=== PATIENT | male | born 1970 | race Native Hawaiian/Other Pacific Islander ===

== ENCOUNTER 2019-12-06 08:19 | Observation (INO) | payer OTHER ==
--- NOTE | 2019-12-06 09:30 | Emergency Department Report ---
ED General Adult HPI - General Chief complaint: Medical Clearance Stated complaint: DIALYSIS Time Seen by Provider: 12/06/19 09:13 Source: patient, police Mode of arrival: Ambulatory Limitations: No Limitations - History of Present Illness Initial comments: Patient is 49 years old male with history of end-stage renal disease on hemodialysis. Patient brought to the emergency room from long term for dialysis. Officer who is accompanied the patient stated that the nurse that do dialysis for him diagnosed with COVID-19 and they do not have somebody to do dialysis for him. Patient is currently denying any shortness of breath, chest pain, cough, fever or chills. No headache, weakness numbness or tingling sensation. Last dialysis was Tuesday. - Related Data Allergies Allergy/AdvReac Type Severity Reaction Status Date / Time No Known Allergies Allergy Unverified 12/06/19 08:26 ED Review of Systems ROS: Stated complaint: DIALYSIS Other details as noted in HPI Comment: All other systems reviewed and negative Constitutional: denies: chills, fever Respiratory: denies: cough, shortness of breath, SOB with exertion, wheezing Cardiovascular: denies: chest pain, palpitations Gastrointestinal: denies: abdominal pain, nausea, vomiting, diarrhea, constipation, hematemesis, melena, hematochezia Musculoskeletal: denies: back pain Neurological: denies: headache, weakness, numbness, paresthesias, confusion, abnormal gait ED Past Medical Hx - Past Medical History Hx Diabetes: Yes Hx Psychiatric Treatment: Yes (PARANOID SCHIOPHRENIC) Additional medical history: ESRD - Surgical History Past Surgical History?: No - Social History Smoking Status: Current Every Day Smoker Substance Use Type: None ED Physical Exam - General Limitations: No Limitations General appearance: alert, in no apparent distress - Head Head exam: Present: atraumatic, normocephalic, normal inspection - Eye Eye exam: Present: normal appearance, PERRL - ENT ENT exam: Present: normal exam, normal orophraynx, mucous membranes moist - Neck Neck exam: Present: normal inspection, full ROM. Absent: tenderness, meningismus, lymphadenopathy, thyromegaly - Respiratory Respiratory exam: Present: normal lung sounds bilaterally - Cardiovascular Cardiovascular Exam: Present: regular rate, normal rhythm, normal heart sounds - GI/Abdominal GI/Abdominal exam: Present: soft, normal bowel sounds. Absent: distended, tenderness, guarding, rebound, rigid, organomegaly, mass, bruit, pulsatile mass, hernia - Extremities Exam Extremities exam: Present: normal inspection, full ROM, normal capillary refill. Absent: calf tenderness - Back Exam Back exam: Present: normal inspection, full ROM. Absent: CVA tenderness (R), CVA tenderness (L) - Neurological Exam Neurological exam: Present: alert, oriented X3, CN II-XII intact, motor sensory deficit - Psychiatric Psychiatric exam: Present: normal mood - Skin Skin exam: Present: warm, intact, normal color ED Course Vital Signs 12/06/19 12/06/19 08:28 10:55 Temperature 98.0 F Pulse Rate 72 Respiratory 20 Rate Blood Pressure 190/105 Blood Pressure 187/107 [Left] O2 Sat by Pulse 100 Oximetry ED Medical Decision Making - Lab Data Result diagrams: 12/06/19 09:12 12/06/19 09:12 - Medical Decision Making Patient is 49 years old male with history of end-stage renal disease on hemodialysis. Patient brought to the emergency room from long term for dialysis. Officer who is accompanied the patient stated that the nurse that do dialysis for him diagnosed with COVID-19 and they do not have somebody to do dialysis for him. Patient is currently denying any shortness of breath, chest pain, cough, fever or chills. No headache, weakness numbness or tingling sensation. Last dialysis was Tuesday. Patient labs reviewed and showed hyperkalemia and elevated blood pressure. I discussed the patient with Dr. Enriquez, health program director personal care worker, he agreed to dialyze the patient today. I discussed the patient with Dr. Barraza, he agreed to admit the patient to medical service for further management. Critical Care Time: Yes Critical care time in (mins) excluding proc time.: 30 Critical care attestation.: If time is entered above; I have spent that time in minutes in the direct care of this critically ill patient, excluding procedure time. ED Disposition Clinical Impression: End-stage renal disease needing dialysis, Volume overload, Hyperkalemia Disposition: OP ADMIT IP TO THIS HOSP Is pt being admited?: Yes Condition: Stable
[2019-12-06 09:32] LABS: Hematocrit 34.4 % (35.5-45.6); Hemoglobin 11.1 gm/dl (11.8-15.2); Mean Corpuscular HGB Conc 32 % (32-34); Mean Corpuscular Volume 94 fl (84-94); Platelet Count 135 K/mm3 (140-440); Red Blood Count 3.66 M/mm3 (3.65-5.03); Red Cell Distribution Width 14.6 % (13.2-15.2)
[2019-12-06 09:49] LABS: Calcium 9.6 mg/dL (8.4-10.2)
--- NOTE | 2019-12-06 11:20 | Consultation ---
History of Present Illness - Reason for Consult Consult date: 12/06/19 end stage renal disease, hyperkalemia - History of Present Illness The patient is a 49 YO male who is a inmate from local [facility] with history significant for Hypertension, Schizophrenia and ESRD on hemodialysis (MWF) was brought to [facility] ED for dialysis. Per officer who accompanied the patient stated that the nurse that do hemodialysis for him diagnosed with COVID-19 and they do not have anyone else to do dialysis for him. Patient is currently denying any shortness of breath, chest pain, cough, fever, chill, headache, weakness numbness or tingling sensation. Patient was last dialyzed on Tuesday the . Nephrology was consulted for further evaluation. Past History Past Medical History: dialysis, ESRD, other (See HPI.) Medications and Allergies Allergies Allergy/AdvReac Type Severity Reaction Status Date / Time No Known Allergies Allergy Unverified 12/06/19 08:26 Review of Systems Constitutional: no weight loss, no weight gain, no fever, no chills, no weakness, no poor appetite Cardiovascular: high blood pressure, no chest pain, no orthopnea, no edema, no syncope, no lightheadedness, no shortness of breath, no leg edema Respiratory: no cough, no shortness of breath, no dyspnea on exertion Gastrointestinal: no abdominal pain, no nausea, no vomiting, no diarrhea, no BRBPR, no melena Genitourinary Male: no dysuria, no hematuria Integumentary: no rash Neurological: no aphasia, no confusion Exam - Vital Signs Vital signs: Vital Signs Temp Pulse Resp BP Pulse Ox 98.0 F 72 20 190/105 100 12/06/19 08:28 12/06/19 08:28 12/06/19 08:28 12/06/19 08:28 12/06/19 08:28 - General Appearance General appearance: well-developed, well-nourished, appears stated age, other (no distress) EENT: ATNC, PERRL, mucous membranes moist, hearing intact, vision intact Neck: Present: neck supple, trachea midline Respiratory: Clear to Ascultation Heart: regular, S1S2, no murmurs Gastrointestinal: Present: normoactive bowel sounds. Absent: tenderness, distended Integumentary: no rash, warm and dry Neurologic: no focal deficit, no asterixis, alert and oriented x3 Musculoskeletal: Present: other (no edema, R femoral tunnel dialysis catheter) Psychiatric: cooperative Results - Lab Results 12/06/19 09:12 12/06/19 09:12 Most recent lab results Calcium 9.6 mg/dL (8.4-10.2) 12/06/19 09:12 Assessment and Plan 1. ESRD: Patient is on maintenance hemodialysis three times a week, MWF schedule. Last HD 12/01/19. Hemodialysis: 12/05. 2. FEN: Hyperkalemia, HD today, monitor. Metabolic acidosis, 2/2 missed HD, monitor. Monitor lytes. 3. Schizophrenia. 4. Hypertension: Continue home meds. Monitor BP.
[2019-12-06] MEDS ORDERED: SODIUM CHLORIDE 0.9% 100 ML IV PRN ×2 (12:00→12:30)
[2019-12-06] MEDS ORDERED: HEPARIN 10,000 UNITS/10 ML VIAL IV PRN (12:00)
[2019-12-06 13:48] LABS: Hepatitis B Surface Antigen Non-Reactive (Negative); Hepatitis C Virus Antibody Reactive (NonReactive)
[2019-12-06] MEDS ORDERED: SODIUM CHLORIDE 0.9% 1000 ML 2,000 ML ONE (13:53)
[2019-12-06 17:38] VITALS: BP 171/94
--- NOTE | 2019-12-06 18:59 | Event Note ---
Date: 12/06/19 See history and physical in the reports End-stage renal disease needing hemodialysis Hyperkalemia Type 2 diabetes Schizophrenia Patient admitted in observation status for hemodialysis Patient to be discharged after hemodialysis
--- NOTE | 2019-12-06 19:04 | Discharge Summary ---
Providers - Providers Date of Admission: 12/06/19 11:13 Date of discharge: 12/06/19 Attending physician: PRESTON RAMIREZ 12/06/19 11:04 Consult to Physician [CONS] Stat Comment: DR MONIQUE MEDINA W/DR MEDINA @[id number] Consulting Provider: ANJU MEDINA Physician Instructions: Reason For Exam: End-stage renal disease needing dialysis Primary care physician: [employer] Hospitalization Condition: Stable Procedures: Hemodialysis Hospital course: Patient was admitted from [facility] for the express need for hemodialysis Jailers was infected with coronavirus hence hemodialysis could not be done at the [facility] facility. Patient underwent dialysis without any problems. Vital signs were stable at the time of discharge. Patient discharged after the hemodialysis back to the [facility] premises. Disposition: TO HOME OR SELFCARE Core Measure Documentation - Palliative Care Palliative Care/ Comfort Measures: Not Applicable - Core Measures Any of the following diagnoses?: none Exam - Constitutional Vitals: Temp Pulse Resp BP Pulse Ox 98.6 F 94 H 20 171/94 100 12/06/19 17:25 12/06/19 17:25 12/06/19 17:25 12/06/19 17:25 12/06/19 08:28 General appearance: Present: no acute distress, well-nourished - EENT Eyes: Present: PERRL ENT: hearing intact, clear oral mucosa - Neck Neck: Present: supple, normal ROM - Respiratory Respiratory effort: normal Respiratory: bilateral: CTA - Cardiovascular Heart rate: 78 Rhythm: regular Heart Sounds: Present: S1 & S2. Absent: rub, click - Extremities Extremities: no ischemia, pulses intact, pulses symmetrical, No edema Peripheral Pulses: within normal limits - Abdominal General gastrointestinal: Present: soft, non-tender, non-distended, normal bowel sounds Male genitourinary: Present: normal - Rectal Rectal Exam: deferred - Integumentary Integumentary: Present: clear, warm, dry - Musculoskeletal Musculoskeletal: gait normal, strength equal bilaterally - Psychiatric Psychiatric: appropriate mood/affect, intact judgment & insight - Neurologic Neurologic: CNII-XII intact, moves all extremities - Allied Health Allied health notes reviewed: nursing, case management Plan Activity: no restrictions Diet: renal Follow up with: SHAHBAZ RODRIGES MD [Primary Care Provider] - 3-5 Days ANJU MEDINA MD [Staff Physician] - 7 Days
--- NOTE | 2019-12-06 19:11 | History and Physical Report ---
CHIEF COMPLAINT: Sent from [facility] for hemodialysis. HISTORY OF PRESENT ILLNESS: A 49-year-old male, a [facility] inmate with history of end-stage renal disease and diabetes and paranoid schizophrenia, brought in from [facility] for dialysis. [facility] is having technical problems with doing hemodialysis because of the nurse who does dialysis has coronavirus syndrome. They do not have any other person who does the dialysis. The patient is not short of breath. The patient's due date for dialysis is today, which is and Tuesday and Tuesday. No chest pain. PAST MEDICAL HISTORY: Significant for diabetes, paranoid schizophrenia, end-stage renal disease. SURGICAL HISTORY: None other than vas cath. SOCIAL HISTORY: Current smoker. FAMILY HISTORY: Hypertension. REVIEW OF SYSTEMS: Significant for no shortness of breath, no chest pain. No fever or chills. A 14-point review of systems done, otherwise negative. PHYSICAL EXAMINATION: GENERAL: Middle-aged male, cooperative during examination. VITAL SIGNS: Blood pressure is 161/96, temperature is 98.6, pulse is 98, respirations are 20, sats are 100%. HEENT: Unremarkable. Pupils equal and reactive. NECK: Supple, no lymphadenopathy, no thyromegaly. LUNGS: Clear to auscultation and percussion. Good air entry. CARDIOVASCULAR: S1, S2 heard. No gallop, no murmur, no rub. Apical impulse in left fifth intercostal space and midclavicular line. ABDOMEN: Soft and benign. No hepatosplenomegaly. No guarding, no rigidity. Hernial orifices are normal. EXTREMITIES: Good pedal pulses. No pedal edema. CENTRAL NERVOUS SYSTEM: Alert and oriented x 4, nonfocal exam. LABORATORY DATA: White count is 3200, H and H is 11.1 and 34.4, platelet count is 135,000. Sodium is 138, potassium is 5.8, chloride is 104, bicarbonate is 13, BUN and creatinine 69 and 8.3. Calcium is 9.6. Hepatitis C is reactive. ASSESSMENT AND PLAN: 1. End-stage renal disease, needing dialysis. Hemodialysis order placed by Dr. Enriquez, the roving frame tender. 2. Hyperkalemia was treated. Also, the patient to get hemodialysis. Potassium level is not that high, so does not need a recheck of potassium after dialysis. 3. Diabetes. The patient to continue his medications from [facility]. 4. Hepatitis C positive. The patient to get outpatient treatment with GI after release from [facility]. 5. Deep venous thrombosis prophylaxis, heparin 5000 q.12. Admission for 12-24 hours for hemodialysis. DISCHARGE PLANNING ISSUES: The patient to be discharged after hemodialysis. JOB# [id number] VSM/NTS
== END 2019-12-06 16:00 | disposition home or self-care (01) ==
LOC: ED 08:19 → EEVIPCON 08:19 → INTOOBSV 11:13 → 4A 11:13 → 2B-ACE 18:01
PROVIDERS: ADMIT Internal Medicine; ATTEND Internal Medicine
DX: I12.0 Hypertensive chronic kidney disease with stage 5 chronic kidney disease or end stage renal disease (principal); E11.22 Type 2 diabetes mellitus with diabetic chronic kidney disease; N18.6 End stage renal disease; E87.5 Hyperkalemia; B19.20 Unspecified viral hepatitis C without hepatic coma; F20.0 Paranoid schizophrenia; E87.70 Fluid overload, unspecified; F17.200 Nicotine dependence, unspecified, uncomplicated; Z99.2 Dependence on renal dialysis; Z79.899 Other long term (current) drug therapy
CPT/HCPCS: 36415; 80048; 80074; 85027; 96374; 99291; G0257; G0378; J1644; J7030